=== PATIENT | female | born 1990 | race Caucasian/White ===

== ENCOUNTER 2023-07-03 01:28 | Emergency (ER) | payer BC, SELFPAY ==
[2023-07-03 01:32] VITALS: BP 120/82; PULSE 86; RESP 18; TEMP 36.6; O2SAT 96; BMI 22.1
--- NOTE | 2023-07-03 02:40 | ED_ITS ---
HPI - Wound/Laceration General Chief Complaint: Wound/Laceration Stated Complaint: Lip Lac Time Seen by Provider: 07/03/23 02:40 Source: patient Mode of arrival: ambulatory Limitations: no limitations History of Present Illness HPI narrative: Karuna patient was too close to the dog and was playing with him dog got scared and bit her on her upper lip patient comes in with superficial laceration dog is fully vaccinated Related Data Allergies Allergy/AdvReac Type Severity Reaction Status Date / Time amoxapine [AMOXAPINE] Allergy Intermediate HIVES Unverified 07/04/20 17:34 amoxicillin [AMOXICILLIN] Allergy Mild RASH Unverified 07/04/20 17:34 Penicillins [PENICILLINS] Allergy Mild RASH Unverified 07/04/20 17:34 Review of Systems 2 Review of Systems: Yes all other systems are reviewed and are negative [facility] Social History Social History Advance Directives: No Advance Directives Information Provided: No Physical Exam 2 Vital Signs: Vital Signs: Last Vital Signs Temp 97.9 F 07/03/23 01:32 Pulse 86 07/03/23 01:32 Resp 18 07/03/23 01:32 BP 120/82 07/03/23 01:32 Pulse Ox 96 07/03/23 01:32 O2 Del Method Room Air 07/03/23 01:32 BMI result Body Mass Index 22.1 HEENT: Nose image: 1. 1.5 cm norm irregular laceration involving the vermilion border of upper lip Medications Administered Discontinued Medications Generic Name Dose Route Start Last Admin Trade Name Freq PRN Reason Stop Dose Admin Lidocaine/Epinephrine 10 ml 07/03/23 02:45 07/03/23 02:49 Lidocaine Hcl 1%/Epi 1:100,000 10 Ml Vial INFILTRATI 07/03/23 02:46 10 ml ONCE ONE Administration Procedures Laceration Laceration 1: Site: lip Size (cm): 2 Description: irregular Depth: simple, single layer Local Anesthetic: lidocaine 1% Amount of anesthesia used (mL): 1 Skin layer closed with: nylon Size (cm): 6-0 Number of sutures: 7 Technique: simple, interrupted Discharge Plan Discharge Clinical Impression: Laceration, Dog bite Patient Disposition: Home, Self-Care Instructions: Animal Bite (ED), Facial Laceration (ED) Additional Instructions: Local care as an Suture removal in 5-7 days
[2023-07-03] MEDS: Lidocaine HCl 1%/Epi 1:100,000 10 ML VIAL INFILTRATI (02:49)
[2023-07-03] MEDS: Bacitracin Oint 0.9 GM PACKET 1 APPL TOPICAL (03:46)
== END 2023-07-03 03:47 | disposition home or self-care (01) ==
PROVIDERS: Emergency Provider Internal Medicine
DX: S01.551A Open bite of lip, initial encounter (principal); W54.0XXA Bitten by dog, initial encounter; Y93.9 Activity, unspecified; Y92.9 Unspecified place or not applicable; Y99.9 Unspecified external cause status
CPT/HCPCS: 12011; 99283; 99284

== ENCOUNTER 2023-07-09 17:24 | Emergency (ER) | payer BC, SELFPAY ==
[2023-07-09 17:43] VITALS: BP 125/86; PULSE 77; RESP 18; TEMP 36.7; O2SAT 99; BMI 21.9
--- NOTE | 2023-07-09 18:29 | ED.WOUNDLAC ---
HPI - Wound/Laceration General Chief Complaint: Wound/Laceration Stated Complaint: Remove sutures Source: patient Mode of arrival: ambulatory Limitations: no limitations History of Present Illness HPI narrative: This is a 33-year-old female presenting for suture removal, patient 7 sutures placed on 07/03/2023 status post dog bite she was discharged without antibiotics however she went to [facility] got antibiotics. No complaints at this time. Feeling better. Related Data Allergies Allergy/AdvReac Type Severity Reaction Status Date / Time amoxapine [AMOXAPINE] Allergy Intermediate HIVES Unverified 07/04/20 17:34 amoxicillin [AMOXICILLIN] Allergy Mild RASH Unverified 07/04/20 17:34 Penicillins [PENICILLINS] Allergy Mild RASH Unverified 07/04/20 17:34 Review of Systems Review of Systems: Constitutional : No Fever, No Chills, Cardiovascular : No Chest Pain, No SOB Respiratory : No Dyspnea Gastrointestinal : No abdominal pain Musculoskeletal : No Joint Swelling Skin : No rash, positive skin laceration Neuro : No Weakness, No Numbness Psych : No SI/HI Yes all other systems are reviewed and are negative [facility] Past Medical History Attestation statement: The following information was validated with the patient. Source: old records reviewed and nursing notes reviewed Physical Exam Vital Signs: Vital Signs: Last Vital Signs Temp 98.1 F 07/09/23 17:43 Pulse 77 07/09/23 17:43 Resp 18 07/09/23 17:43 BP 125/86 07/09/23 17:43 Pulse Ox 99 07/09/23 17:43 O2 Del Method Room Air 07/09/23 17:43 BMI result Body Mass Index 21.9 Vital signs stable Appearance: Alert.? Oriented X3.? No acute distress.? Head: Normocephalic, atraumatic, no step-offs or deformities Eyes: Pupils equal, round and reactive to light.? ENT: Pharynx normal.?+ well-healing laceration to lip, with intact sutures. Neck: Normal inspection.? Neck supple.? CVS: Normal heart rate and rhythm.? Pulses normal.? Respiratory: No respiratory distress.? Breath sounds normal.? Abdomen: Soft and nontender.? Skin: Skin warm and dry.? Normal skin color.? Normal skin turgor.? Extremities: No lower extremity edema.? No calf ttp. 5/5 strength to bilateral upper and lower extremities Neuro: Oriented X 3.? No motor deficit.? No sensory deficit. CN 2-12 intact Medical Decision Making Medical Decision Making [facility] Narrative: 1830 33-year-old female presents for suture removal, to right upper lip placed on 07/03/2023 Physical exam with a well-healing laceration of right upper lip. No signs of infection or abscess. This is likely a well-healing laceration, no signs of abscess, infection, necrosis. Plan suture removal discharge home. Differential Diagnosis Differential Diagnoses: The differential diagnosis associated with the presentation includes This is likely a well-healing laceration, no signs of abscess, infection, necrosis. Admission/Observation Consideration of admission/observation: Escalation of care including admission/observation considered Not indicated Discharge Plan Discharge Clinical Impression: Visit for suture removal Patient Disposition: Home, Self-Care Instructions: Stitches Removal (ED) Additional Instructions: Take your medications as prescribed. If you were prescribed antibiotics today, it is important that you take your medication to their entirety, do not skip any doses, do not finish them early. Follow-up with your primary care provider this week. Return to the emergency department with new or worsening symptoms. Such as fevers, chills, chest pain, shortness of breath, nausea, vomiting, dizziness, headache, vision changes, lethargy In case of emergency call 911 Referrals: PhysicianBernard [Primary Care Provider] - 2 days Stand Alone Forms: Work/School Release Interventions: ED Discharge Assessment Last Done: 07/09/23 18:28
== END 2023-07-09 18:47 | disposition home or self-care (01) ==
PROVIDERS: Emergency Provider Emergency Medicine
DX: Z48.02 Encounter for removal of sutures (principal)
CPT/HCPCS: 99282